=== PATIENT | female | born 1985 | race Caucasian/White ===

== ENCOUNTER 2017-12-15 13:31 | Emergency (ER) | payer SELFPAY ==
[2017-12-15 13:53] LABS: #Basophils 0.1 thou/uL (0.0-0.2); #Eosinphils 0.1 thou/uL (0.0-0.7); #Lymphocytes 1.8 thou/uL (1.20-3.40); #Monocytes 0.5 thou/uL (0.11-0.59); #Neutrophils 8.6 thou/uL (1.40-6.50); %Basophils 0.5 % (0.0-1.0); %Eosinophils 0.9 % (0.0-10.0); %Lymphocytes 16.3 % (21.0-51.0); %Monocytes 4.9 % (0.0-10.0); %Neutrophils 77.4 % (42.0-75.0); Hemoglobin 13.2 g/dL (12.0-16.0); Mean Corpuscular HGB CONC 34.3 g/dL (32.0-36.0); Mean Corpuscular Hemoglobin 31.1 pg (27.0-31.0); Mean Corpuscular Volume 90.6 fl (81.0-99.0); Mean Platelet Volume 7.7 fL (7.4-10.4); Platelet Count 214 thou/uL (130-400); RBC Distribution Width 11.7 % (11.5-14.5); Red Blood Cell (RBC) Count 4.26 mill/uL (4.20-5.40); White Blood Cell (WBC) Count 11.1 thou/uL (4.8-10.8)
[2017-12-15 14:02] LABS: Bilirubin Negative (Negative); Blood, Urine Large (Negative); Clarity CLOUDY (Clear); Glucose, Urine (Dipstick) Negative (Negative); Leukocyte Large (Negative); Nitrite Negative (Negative); Protein, Urine (Dipstick) 100 mg/dL (Neg-Trace); Specific Gravity, Urine 1.005 (1.002-1.036); Urobilinogen 0.2 mg/dL (0.2-1.0)
[2017-12-15 14:06] LABS: Hyaline Casts/LPF 0-3 HYALINE CAST LPF (0-3 Hyaline); Pathc Cast-AUWi Flag 0.29 (0-2.49); Pregnancy Test - Urine (BHCG) Negative (Negative); Pregu Control Background? CLEAR/WHITE (CLR/WHITE); Pregu Control Bar Appear? YES (CONTROL BAR); Specific Gravity 1.005 (1.002-1.036); Squamous Epithelial None Seen HPF (0-3)
[2017-12-15 14:18] LABS: ALT (SGPT) 18 U/L (8-55); AST (SGOT) 17 U/L (5-34); Albumin 4.6 g/dL (3.5-5.0); Alkaline Phosphatase 77 U/L (40-150); Anion Gap 12 mmol/L (10-20); BUN (Urea Nitrogen) 7 mg/dL (7.0-18.7); Bilirubin, Total 0.7 mg/dL (0.2-1.2); Calc. Creatinine Clearance 0 mL/min (70-130); Calcium 10.3 mg/dL (7.8-10.44); Carbon Dioxide 26 mmol/L (22-29); Chloride 105 mmol/L (98-107); Estimated GFR-MDRD 79; Glucose 129 mg/dL (70-105); Potassium 3.9 mmol/L (3.5-5.1); Protein, Total 8.6 g/dL (6.0-8.3); Sodium 139 mmol/L (136-145)
[2017-12-15 14:21] LABS: Bacteria/HPF 1+ HPF (None Seen); RBC/HPF GREATER THAN 50-TNTC HPF (0-3); Yeast-All Forms None Seen HPF (None Seen)
== END 2017-12-15 16:48 | disposition home or self-care (01) ==
LOC: ERS 13:31
DX: N39.0 Urinary tract infection, site not specified (principal); E03.9 Hypothyroidism, unspecified
CPT/HCPCS: 36415; 80053; 81003; 81015; 81025; 85025; 87077; 87086; 87186; 99283

== ENCOUNTER 2018-01-11 22:08 | Emergency (ER) | payer SELFPAY ==
[2018-01-11] MEDS ORDERED: Ketorolac Tromethamine 30 MG/ML VIAL ONE (22:53)
--- NOTE | 2018-01-11 23:08 | RAD ---
LEFT KNEE FOUR VIEWS: History: Fall. Comparison: None. FINDINGS: Large joint effusion. No acute displaced fracture or malalignment. IMPRESSION: Large joint effusion without fracture. Findings are concerning for internal derangement. Nonemergent MRI recommended. POS: [facility]
== END 2018-01-11 23:50 | disposition home or self-care (01) ==
LOC: ERS 22:08
DX: M25.562 Pain in left knee (principal); E03.9 Hypothyroidism, unspecified
CPT/HCPCS: 96372; J1885

== ENCOUNTER 2019-10-20 19:41 | Emergency (ER) | payer SELFPAY ==
--- NOTE | 2019-10-20 20:14 | RAD ---
TWO VIEW CHEST: 10/20/19 HISTORY: Cough. The lungs are clear. No evidence of infiltrate. The heart and mediastinum appear normal. IMPRESSION: No acute findings. POS: [facility]
[2019-10-20] MEDS ORDERED: Dexamethasone 10 MG/ML VIAL ONE (21:10)
== END 2019-10-20 21:34 | disposition home or self-care (01) ==
LOC: ERS 19:41
DX: J02.8 Acute pharyngitis due to other specified organisms (principal); B96.89 Other specified bacterial agents as the cause of diseases classified elsewhere
CPT/HCPCS: 71046; 87081; 87430; 87804; 99283; J1100

== ENCOUNTER 2021-11-08 11:37 | Emergency (ER) | payer SELFPAY ==
[2021-11-08] MEDS ORDERED: Boostrix 0.5 ML (Tdap) VIAL ONE (13:37)
== END 2021-11-08 14:12 | disposition home or self-care (01) ==
LOC: ERS 11:37
DX: S83.92XA Sprain of unspecified site of left knee, initial encounter (principal); W19.XXXA Unspecified fall, initial encounter
CPT/HCPCS: 90471; 90715

== ENCOUNTER 2022-07-04 19:40 | Emergency (ER) | payer SELFPAY | END 2022-07-04 21:30 | disposition home or self-care (01) | LOC: ERS 19:40 | DX: M72.2 Plantar fascial fibromatosis (principal) ==

== ENCOUNTER 2022-08-02 10:02 | Emergency (ER) | payer SELFPAY | END 2022-08-02 11:27 | disposition home or self-care (01) | LOC: ERS 10:02 | DX: L50.0 Allergic urticaria (principal); J02.9 Acute pharyngitis, unspecified; E03.9 Hypothyroidism, unspecified | CPT/HCPCS: 99283 ==

== ENCOUNTER 2023-04-16 20:20 | Emergency (ER) | payer SELFPAY | END 2023-04-16 22:48 | disposition home or self-care (01) | LOC: ERS 20:20 | DX: B35.3 Tinea pedis (principal); E03.9 Hypothyroidism, unspecified | CPT/HCPCS: 99283 ==